=== PATIENT | female | born 1995 | race Caucasian/White ===

== ENCOUNTER 2020-12-15 20:29 | Observation (INO) | END 2020-12-15 22:30 | disposition home or self-care (01) | LOC: 1NENULAB | PROVIDERS: ADMIT Registered Nurse; ATTEND Registered Nurse ==

== ENCOUNTER 2020-12-22 03:58 | Inpatient (IN) ==
[2020-12-22] MEDS ORDERED: *HR* Nalbuphine 10 MG/ML AMPUL IV PRN (04:06)
[2020-12-22] MEDS ORDERED: Metoclopramide 10 MG/2 ML VIAL IVP PRN (04:06)
[2020-12-22] MEDS ORDERED: miSOPROStoL 25 MCG TABLET PO PRN (04:06)
[2020-12-22] MEDS ORDERED: Famotidine 20 MG/2 ML VIAL IVP PRN (04:06)
[2020-12-22] MEDS ORDERED: Naloxone 0.4 MG/ML INJ IVP PRN (04:06)
[2020-12-22] MEDS ORDERED: Oxytocin 20 units/ LR 1000 mL 20 UNIT/1,000 ML BAG IVC SCH (04:15)
[2020-12-22 04:45] LABS: Basophils % 0.2 %; Eosinophils # 0.1 K/mcL (0.0-0.6); Eosinophils % 0.8 %; Hematocrit 36.7 % (35.3-44.9); Hemoglobin 12.7 g/dL (11.5-15.4); Immature Granulocytes % 0.5 % (0-4); Lymphocytes # 2.3 K/mcL (0.6-4.6); Lymphocytes % 20.1 %; Mean Corpuscular HGB Conc 34.6 g/dL (31.6-35.5); Mean Corpuscular Hemoglobin 31.4 pg (28.0-33.3); Mean Corpuscular Volume 90.6 fL (83.0-100.0); Monocytes % 8.4 %; Neutrophils # 8.1 K/mcL (1.6-8.9); Platelet Count 315 K/mcL (140-400); Red Blood Count 4.05 M/mcL (3.82-4.97); White Blood Count 11.6 K/mcL (4.3-11.1)
[2020-12-22 04:54] LABS: Amphetamine Screen,Urine Negative ng/mL (Cutoff=1000); Barbiturate Screen,Urine Negative ng/mL (Cutoff=200); Benzodiazepines Screen,Urine Negative ng/mL (Cutoff=200); Cannabinoid Screen,Urine Negative ng/mL (Cutoff = 50); Cocaine Screen,Urine Negative ng/mL (Cutoff= 300); Creatinine,Urine 144 mg/dL; Opiate Screen,Urine Negative ng/mL (Cutoff=300); Phencyclidine Screen,Urine Negative ng/mL (Cutoff=25); Protein/Creatinine Ratio,Urine 0.12 mg/mg (0.00-0.20)
[2020-12-22 05:04] LABS: Alanine Aminotransferase 9 Units/L (7-52); Aspartate Amino Transferase 12 Units/L (13-39); BUN/Creatinine Ratio 12 (6-26); Blood Urea Nitrogen 7 mg/dL (6-20); Lactate Dehydrogenase 138 Units/L (140-271); Uric Acid 4.3 mg/dL (2.3-7.6); eGFR For African Americans > 60 (> 60); eGFR For Non-African Americans > 60 (> 60)
[2020-12-22 05:22] LABS: Influenza A PCR Negative (Negative); Influenza B PCR Negative (Negative); Resp. Syncytial Virus PCR Negative (Negative); SARS-CoV-2 by PCR (In House) Negative (Negative)
[2020-12-22] MEDS ORDERED: Ondansetron 4 MG/2 ML VIAL IVP ONE ×2 (08:54→21:01)
[2020-12-22] MEDS ORDERED: Ondansetron 4 MG/2 ML VIAL ONE ×2 (09:02→21:02)
[2020-12-22] MEDS: Ringers Solution, Lactated 1,000 ML IVC SCH ×2 (09:05→12:31)
[2020-12-22] MEDS ORDERED: EPHEDrine 50 MG/ML VIAL IVP PRN (10:32)
[2020-12-22] MEDS ORDERED: Epidural Premix (fent/bupiv) 110 ML EP ONE (10:40)
[2020-12-22] MEDS: Epidural Premix (fent/bupiv) 110 ML EP SCH (11:02)
[2020-12-22] MEDS ORDERED: Ropivacaine/PF 0.2% 20 ML VIAL ONE (20:54)
[2020-12-22] MEDS ORDERED: *HR* Ropivacaine/PF 0.5% 20 ML VIAL ONE (20:54)
[2020-12-23] MEDS: Epidural Premix (fent/bupiv) 110 ML EP SCH (01:05)
[2020-12-23] MEDS ORDERED: Lidocaine 1% 20 ML MDV ONE (02:43)
[2020-12-23] MEDS ORDERED: Benzocaine/Menthol 56 GM AEROSOL SPRAY TP PRN (05:02)
[2020-12-23] MEDS ORDERED: Acetaminophen 325 MG TABLET PO PRN (05:02)
[2020-12-23] MEDS ORDERED: Sennosides 8.6 MG TABLET PO PRN (05:02)
[2020-12-23] MEDS ORDERED: Measles/Mumps/Rubella Vacc 0.5 ML VIAL SQ PRN (05:02)
[2020-12-23] MEDS ORDERED: Oxytocin 20 units/ LR 1000 mL 20 UNIT/1,000 ML BAG IVC ONE (05:02)
[2020-12-23] MEDS ORDERED: Rho Immune Globulin 1,500 UNIT SYRINGE IM PRN (05:02)
[2020-12-23] MEDS ORDERED: Oxytocin 20 units/ LR 1000 mL 20 UNIT/1,000 ML BAG IVC SCH (05:02)
[2020-12-23] MEDS ORDERED: Lanolin 7 G OINT...G. TP PRN (05:02)
[2020-12-23] MEDS: Ibuprofen 600 MG TABLET PO PRN ×2 (07:41→16:23)
[2020-12-23] MEDS: Prenatal Vit/FA 1 EACH TABLET PO SCH (07:41)
[2020-12-24] MEDS: Ibuprofen 600 MG TABLET PO PRN (00:26)
[2020-12-24 07:53] VITALS: BP 95/56; PULSE 74; TEMP 98; O2SAT 97
[2020-12-24 08:23] LABS: Basophils % 0.2 %; Eosinophils # 0.2 K/mcL (0.0-0.6); Eosinophils % 1.4 %; Hematocrit 33.2 % (35.3-44.9); Immature Granulocytes % 0.4 % (0-4); Lymphocytes # 2.9 K/mcL (0.6-4.6); Lymphocytes % 22.9 %; Mean Corpuscular HGB Conc 33.1 g/dL (31.6-35.5); Mean Corpuscular Hemoglobin 31.3 pg (28.0-33.3); Mean Corpuscular Volume 94.3 fL (83.0-100.0); Monocytes % 7.9 %; Neutrophils # 8.5 K/mcL (1.6-8.9); Platelet Count 263 K/mcL (140-400); Red Blood Count 3.52 M/mcL (3.82-4.97); Red Cell Distribution Width 12.4 % (11.5-14.5); Segmented Neutrophils % 67.2 %; White Blood Count 12.6 K/mcL (4.3-11.1)
[2020-12-24] MEDS: Prenatal Vit/FA 1 EACH TABLET PO SCH (08:27)
== END 2020-12-24 13:25 | disposition home or self-care (01) | DRG 807 ==
LOC: 1NENULAB 03:58 → 1NENUOBS 12-23 05:00
PROVIDERS: ADMIT Student in an Organized Health Care Education/Training Program; ATTEND Student in an Organized Health Care Education/Training Program